=== PATIENT | female | born 1965 | race American Indian/Alaskan Native ===

== ENCOUNTER 2019-09-02 08:29 | Emergency (ER) | payer OTHER ==
[2019-09-02 08:43] VITALS: BP 115/50
--- NOTE | 2019-09-02 09:53 | Emergency Department Report ---
ED Upper Extremity Inj HPI - General Chief Complaint: Extremity Problem,Nontraumatic Stated Complaint: LFT WRIST/RT WRIST PAIN Time Seen by Provider: 09/02/19 09:09 Source: patient Mode of arrival: Ambulatory Limitations: No Limitations - History of Present Illness Initial Comments: This is a 54-year-old -[place] female who presents to the emergency room with bilateral wrist pain for a couple weeks. 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 Patient reports pain is worse with movement. She denies swelling, bruising, numbness or tingling, weakness, paresthesias, or recent injury. Complaint: Injury to:: wrist (bilateral) Onset/Timin -: week(s) Other Extremity Injury: Wrist: Left, Right Other Injuries: none Handedness: right Place: work Severity scale (0 -10): 7 Improves With: immobilization Worsens With: movement of extremity Associated Symptoms: denies other symptoms Treatments Prior to Arrival: other (wrist brace) - Related Data Previous Rx's Medication Instructions Recorded Last Taken Type Ibuprofen [Motrin 800 MG tab] 800 mg PO TID PRN #20 tablet 09/02/19 Unknown Rx Allergies Allergy/AdvReac Type Severity Reaction Status Date / Time lactase [From Dairy Aid] Allergy Unknown Verified 09/19/16 20:53 ED Review of Systems ROS: Stated complaint: LFT WRIST/RT WRIST PAIN Other details as noted in HPI Constitutional: denies: chills, fever Respiratory: denies: cough, shortness of breath, wheezing Cardiovascular: denies: chest pain, palpitations Gastrointestinal: denies: abdominal pain, nausea, diarrhea Musculoskeletal: arthralgia (bilateral wrist pain). denies: back pain, joint swelling Skin: denies: rash, lesions Neurological: denies: headache, weakness, paresthesias Psychiatric: denies: anxiety, depression ED Past Medical Hx - Past Medical History Previous Medical History?: Yes Hx Psychiatric Treatment: Yes (anxiety and depression) - Social History Smoking Status: Never Smoker Substance Use Type: None - Medications Home Medications: Home Medications Medication Instructions Recorded Confirmed Last Taken Type Ibuprofen [Motrin 800 MG tab] 800 mg PO TID PRN #20 tablet 09/02/19 Unknown Rx ED Physical Exam - General Limitations: No Limitations General appearance: alert, in no apparent distress - Respiratory Respiratory exam: Present: normal lung sounds bilaterally. Absent: respiratory distress - Cardiovascular Cardiovascular Exam: Present: regular rate, normal rhythm. Absent: systolic murmur, diastolic murmur, rubs, gallop - GI/Abdominal GI/Abdominal exam: Present: soft, normal bowel sounds - Expanded Upper Extremity Exam Left Forearm Wrist exam: Present: full ROM (pain with range of motion), crepidus. Absent: tenderness, swelling, abrasion, laceration, ecchymosis, dislocation, erythema, tenderness over anatomical snuff box, pain with axial thumb loading Hand Wrist exam: Present: normal inspection, full ROM Neuro motor exam: Present: wrist extension intact, thumb opposition intact, thumb IP flexion intact, thumb adduction intact, fingers 2-5 abduction intact Neurosensory exam: Present: radial nerve intact, ulnar nerve intact, median nerve intact Vascular: Present: normal capillary refill, radial pulse Right Forearm Wrist exam: Present: full ROM (pain with range of motion). Absent: tenderness, swelling, abrasion, laceration, ecchymosis, deformity, crepidus, dislocation, erythema, tenderness over anatomical snuff box, pain with axial thumb loading Hand Wrist exam: Present: normal inspection, full ROM Neuro motor exam: Present: wrist extension intact, thumb opposition intact, thumb IP flexion intact, thumb adduction intact, fingers 2-5 abduction intact Neurosensory exam: Present: radial nerve intact, ulnar nerve intact, median nerve intact Vascular: Present: normal capillary refill, radial pulse - Neurological Exam Neurological exam: Present: alert, oriented X3 - Psychiatric Psychiatric exam: Present: normal affect, normal mood - Skin Skin exam: Present: warm, dry, intact, normal color. Absent: rash ED Course Vital Signs 09/02/19 08:39 Temperature 98.4 F Pulse Rate 78 Respiratory 18 Rate Blood Pressure 115/50 O2 Sat by Pulse 100 Oximetry ED Medical Decision Making - Radiology Data Radiology results: report reviewed Bilateral wrist x-ray: No acute osseous or soft tissue abnormality. No significant DJD. - Medical Decision Making Patient was examined by me. Patient is nontoxic appearing and stable. Vitals are normal. Obtained x-rays of bilateral wrists. No acute osseous or soft tissue abnormality. No significant DJD. Given analgesics while in the ER. Physical findings susceptible of carpal tunnel syndrome. Patient is wearing wrist brace and instructed to wear them at night. Patient informed of results. Instructed to take Tylenol or ibuprofen for pain. Start ibuprofen 800 mg by mouth 3 times a day when necessary. Follow up with PCP or return to the ER with worsening symptoms. Patient discharged home in stable condition. Critical care attestation.: If time is entered above; I have spent that time in minutes in the direct care of this critically ill patient, excluding procedure time. ED Disposition Clinical Impression: Bilateral wrist pain, Carpal tunnel syndrome, bilateral Disposition: TO HOME OR SELFCARE Is pt being admited?: No Condition: Stable Instructions: Carpal Tunnel Syndrome (ED) Additional Instructions: Rest, continue using wrist splint at night time. Use ice or heat on affected area for 20 minutes and off for 2 hours. Take ibuprofen or Tylenol pain medication 3 times a day as needed for pain. Follow up with Primary Care Provider in 2-3 days. Prescriptions: Ibuprofen [Motrin 800 MG tab] 800 mg PO TID PRN #20 tablet PRN Reason: Pain , Severe (7-10) Referrals: [facility], [facility] [Provider Group] - 3-5 Days [facility] [Provider Group] - 3-5 Days SANTOS FUENTES MD [Staff Physician] - 3-5 Days Forms: Work/School Release Form(ED) Time of Disposition: 10:46
--- NOTE | 2019-09-02 10:12 | XRay Report ---
Bilateral wrist series-2 views each INDICATION: bilateral wrist pain. Patient complaining primarily of left-sided wrist pain COMPARISON: None. IMPRESSION: No acute osseous or soft tissue abnormality. No significant DJD. Signer Name: Aman Lay MD Signed: 09/02/2019 10:07 AM Workstation Name: [id number]
[2019-09-02] MEDS ORDERED: IBUPROFEN 800 MG TAB PO ONE (10:44)
== END 2019-09-02 10:58 | disposition home or self-care (01) ==
LOC: ED 08:29
DX: G56.03 Carpal tunnel syndrome, bilateral upper limbs (principal); F32.9 Major depressive disorder, single episode, unspecified; F41.9 Anxiety disorder, unspecified; Z79.899 Other long term (current) drug therapy; Z88.8 Allergy status to other drugs, medicaments and biological substances